=== PATIENT | female | born 1955 | race Caucasian/White ===

== ENCOUNTER 2018-07-12 15:23 | Inpatient (IN) | payer MEDICARE, BC ==
[~2018-07-12] VITALS: Ht 170.2 cm; Wt 64.0 kg
[2018-07-12] MEDS ORDERED: BUPR-173 PO (15:54)
[2018-07-12] MEDS ORDERED: SUMA100T3 PO (15:54)
[2018-07-12] MEDS ORDERED: LORA-445 PO (15:54)
[2018-07-12] MEDS ORDERED: ESCI5TAB7 PO (15:54)
[2018-07-12] MEDS ORDERED: OMNIPAQUE 350 MG/ML, 100ML BOTTLE ONE (16:16)
[2018-07-12] MEDS ORDERED: FENTANYL PF 100 MCG/2ML ONE (16:45)
[2018-07-12] MEDS ORDERED: SODIUM CHLORIDE 0.9% 1,000 ML IV ONE (16:51)
[2018-07-12] MEDS ORDERED: NITROGLYCERIN SINGLE TAB 0.4 MG SL PRN (17:00)
[2018-07-12] MEDS ORDERED: ZOLPIDEM 5MG TABLET PO PRN (17:00)
[2018-07-12] MEDS ORDERED: NITROGLYCERIN 0.4 MG BOTTLE (25 TABS) SL PRN (17:00)
[2018-07-12] MEDS ORDERED: BISACODYL 5 MG EC TABLET PO PRN (17:00)
[2018-07-12] MEDS ORDERED: NITROGLYCERIN 0.4 MG/SPRAY SL PRN (17:00)
[2018-07-12] MEDS ORDERED: ONDANSETRON 2MG/ML, 2ML IVP PRN (17:00)
[2018-07-12] MEDS ORDERED: ACETAMINOPHEN 650 MG/20.3 ML UDC PO PRN (17:00)
[2018-07-12] MEDS ORDERED: BISACODYL 10 MG SUPP PR PRN (17:00)
[2018-07-12] MEDS ORDERED: morphine SULFATE 10 MG/ML, 1ML IV PRN (17:00)
[2018-07-12 17:25] LABS: BASOPHILS # (AUTO) 0.02 x10^3/uL (0-0.1); BASOPHILS % (AUTO) 0 % (0-1); EOSINOPHILS # (AUTO) 0.02 x10^3/uL (0-0.4); EOSINOPHILS % (AUTO) 0 % (1-7); LYMPHOCYTES # (AUTO) 1.55 x10^3/uL (1-3.4); LYMPHOCYTES % (AUTO) 12 % (22-44); MD NO; MEAN CORPUSCULAR HEMOGLOBIN 30.1 pg (27.0-34.8); MEAN CORPUSCULAR HGB CONC 34.3 g/dL (32.4-35.8); MEAN CORPUSCULAR VOLUME 87.5 fL (80-100); MEAN PLATELET VOLUME 10.1 fL (7.4-10.4); MONOCYTES # (AUTO) 0.67 x10^3/uL (0.2-0.8); MONOCYTES % (AUTO) 5 % (2-9); NEUTROPHILS # (AUTO) 11.04 x10^3/uL (1.8-6.8); NEUTROPHILS % (AUTO) 83 % (42-75); PLATELET COUNT 221 x10^3/uL (130-400); RED BLOOD COUNT 5.37 x10^6/uL (3.82-5.3); RED CELL DISTRIBUTION WIDTH 12.3 % (9.6-15.2)
[2018-07-12 17:35] LABS: CHOL/HDL RATIO 5.6; LDL/HDL RATIO 3.6 (0.5-3.0)
[2018-07-12 17:50] LABS: ALANINE AMINOTRANSFERASE 50 U/L (12-78); ALBUMIN 4.1 g/dL (3.4-5.0); ANION GAP 7 mmol/L (5-15); CALCIUM 9.1 mg/dL (8.5-10.1); CHLORIDE 110 mmol/L (98-107)
[2018-07-12 17:52] LABS: ALKALINE PHOSPHATASE 103 U/L (45-117); BILIRUBIN,TOTAL 0.8 mg/dL (0.2-1.0); TOTAL PROTEIN 6.9 g/dL (6.4-8.2)
[2018-07-12] MEDS ORDERED: BUPROPION HCL 100 MG PO SCH (18:00)
[2018-07-12] MEDS ORDERED: LORazepam 0.5MG TABLET PO PRN (18:00)
[2018-07-12 19:40] VITALS: BP 105/67
[2018-07-12] MEDS ORDERED: HEPARIN 5,000 UNITS/ML, 1ML IV ONE (20:00)
[2018-07-12] MEDS ORDERED: HEPARIN 25,000 UNITS/500ML PMX 500 ML IV PRN (20:00)
[2018-07-12] MEDS ORDERED: HEPARIN 5,000 UNITS/ML, 1ML IV PRN (20:00)
[2018-07-12] MEDS ORDERED: SUMATRIPTAN 100 MG TABLET PO PRN (20:30)
[2018-07-12] MEDS ORDERED: SUMATRIPTAN 50 MG TABLET PO PRN (20:30)
[2018-07-12] MEDS: ESCITALOPRAM OXALATE 2.5 MG PO SCH ×2 (21:00→21:27)
[2018-07-12] MEDS ORDERED: CARVEDILOL 6.25 MG TABLET PO SCH (21:00)
[2018-07-12] MEDS: LISINOPRIL 5 MG TABLET PO SCH (21:25)
[2018-07-12] MEDS: ATORVASTATIN 40 MG TABLET PO SCH (21:26)
[2018-07-12] MEDS: SODIUM CHLORIDE FLUSH 10ML SYR IVF SCH (21:26)
[2018-07-12] MEDS: SODIUM CHLORIDE 0.9% 1,000 ML IV SCH (21:27)
[2018-07-13 02:29] LABS: BASOPHILS # (AUTO) 0.05 x10^3/uL (0-0.1); BASOPHILS % (AUTO) 1 % (0-1); EOSINOPHILS # (AUTO) 0.17 x10^3/uL (0-0.4); EOSINOPHILS % (AUTO) 2 % (1-7); LYMPHOCYTES # (AUTO) 3.46 x10^3/uL (1-3.4); LYMPHOCYTES % (AUTO) 43 % (22-44); MD NO; MEAN CORPUSCULAR HEMOGLOBIN 30.1 pg (27.0-34.8); MEAN CORPUSCULAR HGB CONC 34.5 g/dL (32.4-35.8); MEAN CORPUSCULAR VOLUME 87.1 fL (80-100); MEAN PLATELET VOLUME 9.5 fL (7.4-10.4); MONOCYTES % (AUTO) 7 % (2-9); NEUTROPHILS # (AUTO) 3.82 x10^3/uL (1.8-6.8); NEUTROPHILS % (AUTO) 47 % (42-75); PLATELET COUNT 205 x10^3/uL (130-400); RED BLOOD COUNT 4.79 x10^6/uL (3.82-5.3); RED CELL DISTRIBUTION WIDTH 12.5 % (9.6-15.2)
[2018-07-13 02:39] LABS: ALANINE AMINOTRANSFERASE 44 U/L (12-78); ALBUMIN 3.2 g/dL (3.4-5.0); ANION GAP 6 mmol/L (5-15); CALCIUM 8.4 mg/dL (8.5-10.1); CHLORIDE 111 mmol/L (98-107); CREATININE 0.86 mg/dL (0.55-1.02)
[2018-07-13 02:41] LABS: ALKALINE PHOSPHATASE 88 U/L (45-117); BILIRUBIN,TOTAL 0.5 mg/dL (0.2-1.0)
[2018-07-13 03:12] VITALS: BP 88/50
[2018-07-13 03:46] VITALS: BP 90/53
[2018-07-13] MEDS: SODIUM CHLORIDE 0.9% 1,000 ML IV SCH ×5 (05:03→21:00)
[2018-07-13 07:53] VITALS: BP 80/48
[2018-07-13] MEDS ORDERED: SODIUM CHLORIDE 0.9% 1,000 ML IV ONE (08:31)
[2018-07-13] MEDS ORDERED: BIVALIRUDIN 250 MG ONE (08:46)
[2018-07-13] MEDS ORDERED: NITROGLYCERIN 5 MG/ML, 10ML ONE (08:46)
[2018-07-13] MEDS ORDERED: HEPARIN 1,000 UNITS/ML, 10ML ONE (08:46)
[2018-07-13] MEDS ORDERED: FENTANYL PF 100 MCG/2ML ONE (08:46)
[2018-07-13] MEDS ORDERED: MIDAZOLAM 1 MG/ML, 2ML ONE (08:46)
[2018-07-13] MEDS ORDERED: TICAGRELOR 90 MG TABLET ONE (08:46)
[2018-07-13] MEDS ORDERED: VERAPAMIL 2.5 MG/ML, 2ML ONE (08:46)
[2018-07-13] MEDS ORDERED: LIDOCAINE-MPF 2% ,5ML ONE (08:47)
[2018-07-13] MEDS: SODIUM CHLORIDE FLUSH 10ML SYR IVF SCH ×2 (09:00→21:30)
[2018-07-13] MEDS: CARVEDILOL 3.125 MG TABLET PO SCH ×2 (09:00→21:03)
[2018-07-13] MEDS: LISINOPRIL 5 MG TABLET PO SCH ×2 (09:00→21:03)
[2018-07-13 13:50] VITALS: BP 95/53
[2018-07-13] MEDS ORDERED: ACETAMINOPHEN 325 MG TABLET PO PRN (15:00)
[2018-07-13 18:52] VITALS: BP 106/66
[2018-07-13] MEDS: ATORVASTATIN 40 MG TABLET PO SCH (21:00)
[2018-07-13] MEDS: ESCITALOPRAM OXALATE 2.5 MG PO SCH (21:30)
[2018-07-14] MEDS: SODIUM CHLORIDE 0.9% 1,000 ML IV SCH ×3 (01:38→09:38)
[2018-07-14 03:49] VITALS: BP 100/65
[2018-07-14 05:38] LABS: ALBUMIN 3.1 g/dL (3.4-5.0); ANION GAP 5 mmol/L (5-15); CALCIUM 8.3 mg/dL (8.5-10.1); CHLORIDE 111 mmol/L (98-107)
[2018-07-14 05:40] LABS: CREATININE 0.84 mg/dL (0.55-1.02)
[2018-07-14 05:48] LABS: BASOPHILS # (AUTO) 0.04 x10^3/uL (0-0.1); BASOPHILS % (AUTO) 1 % (0-1); EOSINOPHILS # (AUTO) 0.12 x10^3/uL (0-0.4); EOSINOPHILS % (AUTO) 2 % (1-7); LYMPHOCYTES # (AUTO) 2.76 x10^3/uL (1-3.4); LYMPHOCYTES % (AUTO) 37 % (22-44); MD NO; MEAN CORPUSCULAR HEMOGLOBIN 29.5 pg (27.0-34.8); MEAN CORPUSCULAR VOLUME 86.7 fL (80-100); MEAN PLATELET VOLUME 9.9 fL (7.4-10.4); MONOCYTES # (AUTO) 0.56 x10^3/uL (0.2-0.8); MONOCYTES % (AUTO) 8 % (2-9); NEUTROPHILS # (AUTO) 3.98 x10^3/uL (1.8-6.8); NEUTROPHILS % (AUTO) 53 % (42-75); PLATELET COUNT 181 x10^3/uL (130-400); RED BLOOD COUNT 4.45 x10^6/uL (3.82-5.3); RED CELL DISTRIBUTION WIDTH 12.4 % (9.6-15.2)
[2018-07-14 07:37] VITALS: BP 104/67
[2018-07-14] MEDS: CARVEDILOL 3.125 MG TABLET PO SCH (08:06)
[2018-07-14] MEDS: LISINOPRIL 5 MG TABLET PO SCH (08:07)
[2018-07-14] MEDS: SODIUM CHLORIDE FLUSH 10ML SYR IVF SCH (09:00)
[2018-07-14] MEDS ORDERED: CLOPIDOGREL 75 MG TABLET PO SCH (11:00)
[2018-07-14] MEDS ORDERED: LISI5TAB7 PO (11:25)
[2018-07-14] MEDS ORDERED: ASPI-621 PO (11:25)
[2018-07-14] MEDS ORDERED: CLOP75TA PO (11:25)
[2018-07-14] MEDS ORDERED: ATOR40TA78 PO (11:25)
[2018-07-14] MEDS ORDERED: CARV3.1212 PO (11:25)
[2018-07-15] MEDS ORDERED: ASPIRIN 81 MG TABLET EC PO SCH (06:00)
[2018-07-15] MEDS ORDERED: LISINOPRIL 5 MG TABLET PO SCH (09:00)
== END 2018-07-14 14:26 | disposition home or self-care (01) | DRG 281 ==
LOC: ED 16:28 → EDIP 16:29 → ED 16:50 → 5SO 18:24
PROVIDERS: ADMIT Internal Medicine; ATTEND Internal Medicine
PROC: 4A023N7 Measurement of Cardiac Sampling and Pressure, Left Heart, Percutaneous Approach (ICD-10-PCS; principal; 2018-07-13)
PROC: 4A023N7 Measurement of Cardiac Sampling and Pressure, Left Heart, Percutaneous Approach (ICD-10-PCS; 2018-07-13)
PROC: B2111ZZ Fluoroscopy of Multiple Coronary Arteries using Low Osmolar Contrast (ICD-10-PCS; 2018-07-13)
PROC: 4A033BC Measurement of Arterial Pressure, Coronary, Percutaneous Approach (ICD-10-PCS; 2018-07-13)
PROC: B2151ZZ Fluoroscopy of Left Heart using Low Osmolar Contrast (ICD-10-PCS; 2018-07-13)
DX: I21.4 Non-ST elevation (NSTEMI) myocardial infarction (principal); I51.81 Takotsubo syndrome; E03.9 Hypothyroidism, unspecified; E78.5 Hyperlipidemia, unspecified; I10 Essential (primary) hypertension; F43.10 Post-traumatic stress disorder, unspecified; F32.9 Major depressive disorder, single episode, unspecified; F41.9 Anxiety disorder, unspecified; G43.909 Migraine, unspecified, not intractable, without status migrainosus; M54.9 Dorsalgia, unspecified; D72.829 Elevated white blood cell count, unspecified; E87.6 Hypokalemia; G89.29 Other chronic pain; Z72.89 Other problems related to lifestyle; Z88.0 Allergy status to penicillin; Z88.5 Allergy status to narcotic agent; Z82.49 Family history of ischemic heart disease and other diseases of the circulatory system; Z83.3 Family history of diabetes mellitus; Z80.42 Family history of malignant neoplasm of prostate; Z84.89 Family history of other specified conditions; Z79.899 Other long term (current) drug therapy
CPT/HCPCS: 36415; 71275; 74175; 80048; 80053; 80061; 82040; 83735; 84100; 84484; 85025; 85520; 93005; 93306; 93458; 99156; 99285; C1769; C1894; G0378; J0583; J1644; J2250; J3010; J3490; Q9967; J7030